=== PATIENT | female | born 1990 | race American Indian/Alaskan Native ===

== ENCOUNTER 2019-11-08 05:26 | Emergency (ER) | payer SELFPAY ==
[2019-11-08 05:37] VITALS: BP 132/73
[2019-11-08] MEDS ORDERED: FAMOTIDINE 20 MG TAB PO ONE (05:58)
[2019-11-08] MEDS ORDERED: diphenhydrAMINE 25 MG CAP PO ONE (05:58)
[2019-11-08] MEDS ORDERED: methylPREDNISolone Sod Succinate 125 MG/2 ML INJ IM ONE (05:58)
--- NOTE | 2019-11-08 06:03 | Emergency Department Report ---
ED Allergic Reaction HPI - General Chief complaint: Allergic Reaction Stated complaint: ALLERGIC REACTION Source: patient Mode of arrival: Ambulatory Limitations: No Limitations - History of Present Illness Initial Comments: Patient is a 29-year-old -[place] female with a history of asthma who presents to the ED with complaint of acute onset persistent diffuse itching with burning sensation in her hands and mild swollen lips for the last 8 hours after eating food from a restaurant about 10 hours ago. Patient states that she took Benadryl 50 mg capsules about 8 hours ago with no relief. Patient denies shortness of breath, dizziness, nausea, vomiting, diarrhea, abdominal pain, fever, chills, cough, wheezing, swollen throat, swollen tongue, dysphagia, dysphonia, nasal and sinus congestion or facial swelling. MD Complaint: allergic reaction, facial swelling (Lip swelling) -: Sudden, hour(s) (8) Exposure: food Symptoms: rash, itching, facial swelling (Lip swelling), lip swelling. denies: difficulty swallowing, difficulty breathing, orolingual swelling, hoarseness, dizziness, nausea, vomiting, other, abdominal pain Severity: moderate Treatment Prior to Arrival: benadryl Previous Allergy History: none - Related Data Previous Rx's Medication Instructions Recorded Last Taken Type HYDROcodone/APAP 5-325 [[place] 1 each PO Q6HR PRN #12 tablet 04/09/14 Unknown Rx 5/325] Penicillin Vk [Veetids TAB] 500 mg PO QID #40 tablet 04/09/14 Unknown Rx Albuterol INH(or & Nicu Only) 2 puff IH QID PRN #1 inhalation 09/11/14 Unknown Rx [ProAir HFA Inhaler] Fluticasone Propionate [Flonase] 2 sprays NS QDAY #1 bottle 09/11/14 Unknown Rx Ibuprofen [Motrin 800 MG tab] 800 mg PO TID PRN #30 tablet 09/11/14 Unknown Rx Loratadine (Nf) [Claritin] 10 mg PO DAILY #30 tablet 09/11/14 Unknown Rx Sulfamethoxazole/Trimethoprim 1 each PO BID #20 tablet 09/11/14 Unknown Rx [Bactrim Ds] predniSONE [Deltasone] 40 mg PO QDAY #10 tab 09/11/14 Unknown Rx Cyclobenzaprine [Flexeril] 10 mg PO BID PRN #20 tablet 06/17/18 Unknown Rx Menthol/Camphor [[place] 1 applicatio TP TID PRN #1 tube 06/17/18 Unknown Rx Ointment] Naproxen 500 mg PO BID PRN #30 tablet 06/17/18 Unknown Rx Cyclobenzaprine [Flexeril] 10 mg PO TID PRN #30 tablet 07/12/18 Unknown Rx Menthol/Camphor [[place] 1 applicatio TP TID PRN #1 tube 07/12/18 Unknown Rx Ointment] Naproxen [Naprosyn] 500 mg PO BID PRN #30 tablet 07/12/18 Unknown Rx dexAMETHasone [Decadron] 4 mg PO Q12H #7 tablet 07/12/18 Unknown Rx Famotidine [Pepcid] 20 mg PO Q12H #30 tablet 11/08/19 Unknown Rx Prednisone [predniSONE 10 mg 10 mg PO .TAPER #21 tab.ds.pk 11/08/19 Unknown Rx (6-Day Pack, 21 Tabs)] Allergies Allergy/AdvReac Type Severity Reaction Status Date / Time cephalexin monohydrate Allergy Unknown Verified 10/31/13 20:16 [From Keflex] ED Review of Systems ROS: Stated complaint: ALLERGIC REACTION Other details as noted in HPI Constitutional: denies: chills, fever Eyes: denies: eye pain, eye discharge, vision change ENT: other (Swollen lips with itching and burning sensation). denies: ear pain, throat pain Respiratory: denies: cough, shortness of breath, wheezing Cardiovascular: denies: chest pain, palpitations Endocrine: no symptoms reported Gastrointestinal: denies: abdominal pain, nausea, diarrhea Genitourinary: denies: urgency, dysuria, discharge Musculoskeletal: denies: back pain, joint swelling, arthralgia Skin: pruritus (Diffuse itchy mildly erythematous rashes with a burning sensation). denies: rash, lesions Neurological: denies: headache, weakness, paresthesias Psychiatric: denies: anxiety, depression Hematological/Lymphatic: denies: easy bleeding, easy bruising ED Past Medical Hx - Past Medical History Previous Medical History?: Yes Hx Arthritis: Yes Hx Asthma: Yes - Surgical History Past Surgical History?: Yes Additional Surgical History: c section x2 - Social History Smoking Status: Never Smoker Substance Use Type: None - Medications Home Medications: Home Medications Medication Instructions Recorded Confirmed Last Taken Type HYDROcodone/APAP 5-325 [[place] 1 each PO Q6HR PRN #12 tablet 04/09/14 Unknown Rx 5/325] Penicillin Vk [Veetids TAB] 500 mg PO QID #40 tablet 04/09/14 Unknown Rx Albuterol INH(or & [place] Only) 2 puff IH QID PRN #1 inhalation 09/11/14 Unknown Rx [ProAir HFA Inhaler] Fluticasone Propionate [Flonase] 2 sprays NS QDAY #1 bottle 09/11/14 Unknown Rx Ibuprofen [Motrin 800 MG tab] 800 mg PO TID PRN #30 tablet 09/11/14 Unknown Rx Loratadine (Nf) [Claritin] 10 mg PO DAILY #30 tablet 09/11/14 Unknown Rx Sulfamethoxazole/Trimethoprim 1 each PO BID #20 tablet 09/11/14 Unknown Rx [Bactrim Ds] predniSONE [Deltasone] 40 mg PO QDAY #10 tab 09/11/14 Unknown Rx Cyclobenzaprine [Flexeril] 10 mg PO BID PRN #20 tablet 06/17/18 Unknown Rx Menthol/Camphor [[place] 1 applicatio TP TID PRN #1 tube 06/17/18 Unknown Rx Ointment] Naproxen 500 mg PO BID PRN #30 tablet 06/17/18 Unknown Rx Cyclobenzaprine [Flexeril] 10 mg PO TID PRN #30 tablet 07/12/18 Unknown Rx Menthol/Camphor [[place] 1 applicatio TP TID PRN #1 tube 07/12/18 Unknown Rx Ointment] Naproxen [Naprosyn] 500 mg PO BID PRN #30 tablet 07/12/18 Unknown Rx dexAMETHasone [Decadron] 4 mg PO Q12H #7 tablet 07/12/18 Unknown Rx Famotidine [Pepcid] 20 mg PO Q12H #30 tablet 11/08/19 Unknown Rx Prednisone [predniSONE 10 mg 10 mg PO .TAPER #21 tab.ds.pk 11/08/19 Unknown Rx (6-Day Pack, 21 Tabs)] ED Physical Exam - General Limitations: No Limitations General appearance: alert, in no apparent distress - Head Head exam: Present: atraumatic, normocephalic, normal inspection - Eye Eye exam: Present: normal appearance, PERRL, EOMI Pupils: Present: normal accommodation - ENT ENT exam: Present: normal orophraynx, mucous membranes moist, TM's normal bilaterally, normal external ear exam, other (Mild swollen lips) - Neck Neck exam: Present: normal inspection, full ROM. Absent: tenderness, lymphadenopathy, thyromegaly - Respiratory Respiratory exam: Present: normal lung sounds bilaterally. Absent: respiratory distress, wheezes, rales, rhonchi, chest wall tenderness, accessory muscle use, decreased breath sounds, prolonged expiratory - Cardiovascular Cardiovascular Exam: Present: regular rate, normal rhythm, normal heart sounds. Absent: systolic murmur, diastolic murmur, rubs, gallop - GI/Abdominal GI/Abdominal exam: Present: soft, normal bowel sounds. Absent: tenderness, guarding, rebound, hyperactive bowel sounds, hypoactive bowel sounds, organomegaly - Extremities Exam Extremities exam: Present: normal inspection, full ROM, normal capillary refill - Back Exam Back exam: Present: normal inspection, full ROM. Absent: tenderness, CVA tenderness (R), CVA tenderness (L), muscle spasm, paraspinal tenderness - Neurological Exam Neurological exam: Present: alert, oriented X3, CN II-XII intact, normal gait, reflexes normal - Psychiatric Psychiatric exam: Present: normal affect, normal mood - Skin Skin exam: Present: warm, dry, intact, normal color, rash (Mildly erythematous macular urticarial rashes ), erythema, urticaria ED Course Vital Signs 11/08/19 05:36 Temperature 98.4 F Pulse Rate 83 Respiratory 20 Rate Blood Pressure 132/73 O2 Sat by Pulse 99 Oximetry ED Medical Decision Making - Medical Decision Making This is a 29-year-old female with a history of asthma who presented to the ED with acute onset persistent itchy mild erythematous urticarial rashes with mild lip swelling for the last 8 hours after eating at a restaurant 10 hours ago. In the ED, patient is alert and oriented x3 and is not in distress. Patient had taken Benadryl 50 mg about 8 hours ago and states that the symptoms have been persistent. In the ED, patient is alert and oriented x3 and is not in distress with normal vital signs. Patient was treated in the ED with steroids, Benadryl and Pepcid and observed in the ED. On reevaluation, patient felt better and the itching resolved and swelling improved. The patient was discharged home on medications and advised to follow-up with her primary care physician in 5 to 7 days for reevaluation. Patient was also advised to return to the ED immediately if symptoms get worse. - Differential Diagnosis Acute urticaria; acute allergic reaction; angioedema Critical care attestation.: If time is entered above; I have spent that time in minutes in the direct care of this critically ill patient, excluding procedure time. ED Disposition Clinical Impression: Acute urticaria, Swelling of both lips Acute allergic reaction Qualifiers: Encounter type: initial encounter Qualified Code(s): T78.40XA - Allergy, unspecified, initial encounter Disposition: TO HOME OR SELFCARE Is pt being admited?: No Does the pt Need Aspirin: No Condition: Stable Instructions: Urticaria (ED), Food Allergy (ED), Allergies (ED) Additional Instructions: Take medication with food, drink plenty of fluids and follow-up with your primary care physician in 3 to 5 days for reevaluation. Return to the ED immediately if symptoms get worse. Prescriptions: Famotidine [Pepcid] 20 mg PO Q12H #30 tablet Prednisone [predniSONE 10 mg (6-Day Pack, 21 Tabs)] 10 mg PO .TAPER #21 tab.ds.pk Ref[facility]: [facility] [Outside] - 3-5 Days Time of Disposition: 06:06 Print Language: CZECH
== END 2019-11-08 06:46 | disposition home or self-care (01) ==
LOC: ED 05:26
DX: T78.1XXA Other adverse food reactions, not elsewhere classified, initial encounter (principal); L50.9 Urticaria, unspecified; L50.0 Allergic urticaria; R22.9 Localized swelling, mass and lump, unspecified; M19.91 Primary osteoarthritis, unspecified site; J45.909 Unspecified asthma, uncomplicated; Z98.890 Other specified postprocedural states; Z79.1 Long term (current) use of non-steroidal anti-inflammatories (NSAID); Z79.2 Long term (current) use of antibiotics; Z79.899 Other long term (current) drug therapy; Z88.8 Allergy status to other drugs, medicaments and biological substances; X58.XXXA Exposure to other specified factors, initial encounter
CPT/HCPCS: 96372; 99282; J2930